=== PATIENT | female | born 1970 | race Two or more races ===

== ENCOUNTER 2017-09-14 12:42 | Outpatient (CLI) | payer MEDICARE, MEDICAID | END 2017-09-14 23:59 | disposition home or self-care (01) | LOC: WOU 12:42 | PROVIDERS: ATTEND Surgery | DX: L98.0 Pyogenic granuloma (principal); S61.011A Laceration without foreign body of right thumb without damage to nail, initial encounter; X58.XXXA Exposure to other specified factors, initial encounter; Y92.89 Other specified places as the place of occurrence of the external cause; M79.644 Pain in right finger(s); F79 Unspecified intellectual disabilities; R73.03 Prediabetes | CPT/HCPCS: 11042; A6402; J3490 ==

== ENCOUNTER 2017-09-18 13:15 | Outpatient (CLI) | payer MEDICARE, MEDICAID | END 2017-09-18 23:59 | disposition home or self-care (01) | LOC: WOU 13:15 | PROVIDERS: ATTEND Surgery | DX: L98.0 Pyogenic granuloma (principal); S61.011A Laceration without foreign body of right thumb without damage to nail, initial encounter; X58.XXXA Exposure to other specified factors, initial encounter; Y92.89 Other specified places as the place of occurrence of the external cause; M79.644 Pain in right finger(s) | CPT/HCPCS: 11042; A6402 ==

== ENCOUNTER 2017-09-25 13:00 | Outpatient (CLI) | payer MEDICARE, MEDICAID ==
[2017-09-25 14:42] LABS: BASOPHILS # (AUTO) 0.1 /CMM (0.0-0.2); BASOPHILS % (AUTO) 0.7 % (0.0-2.0); EOSINOPHILS % (AUTO) 2.1 % (0.0-6.0); HEMATOCRIT 46 % (33-45); HEMOGLOBIN 15.3 g/dL (11.5-14.8); LYMPHOCYTES # (AUTO) 2.1 /CMM (0.8-4.8); MEAN CORPUSCULAR HGB CONC 33 g/dl (31.0-36.0); MEAN CORPUSCULAR VOLUME 91 fL (82-100); MONOCYTES # (AUTO) 0.8 /CMM (0.1-1.30); NEUTROPHILS # (AUTO) 9.6 /CMM (1.8-8.9); NEUTROPHILS % (AUTO) 75.2 % (43.0-81.0); PLATELET COUNT (AUTO) 300 /CMM (150-450); RDW COEFFICIENT OF VARIATION 13.6 (11.5-15.0); RED BLOOD CELL COUNT(AUTO) 5.04 MIL/uL (4.0-5.2); WHITE BLOOD COUNT (AUTO) 12.8 K/uL (4.3-11.0)
[2017-09-25 14:51] LABS: CALCIUM, SERUM 9.8 mg/dL (8.5-10.1); CREATININE 0.8 mg/dL (0.6-1.3); POTASSIUM 4.1 mmol/L (3.5-5.1)
[2017-09-25 14:55] LABS: INR 0.94 (0.87-1.13)
== END 2017-09-25 23:59 | disposition home or self-care (01) ==
LOC: WOU 13:00
PROVIDERS: ATTEND Surgery
DX: L98.0 Pyogenic granuloma (principal); M79.644 Pain in right finger(s); F79 Unspecified intellectual disabilities; R73.03 Prediabetes
CPT/HCPCS: 11042; 36415; 80048-TC; 84703-TC; 85025-TC; 85610-TC; 85730-TC; A6402

== ENCOUNTER → 2017-09-28 | Day surgery (SDC) | payer MEDICARE, MEDICAID ==
[~2017-09-28] MED LIST: BUPIVACAINE 0.25% 75 MG/30 ML VIAL ONE; LIDOCAINE 1%-EPI 1:100,000 20 ML VIAL ONE
== END | disposition home or self-care (01) ==
LOC: DS 10:51
PROVIDERS: ATTEND Surgery
DX: L98.498 Non-pressure chronic ulcer of skin of other sites with other specified severity (principal); L98.0 Pyogenic granuloma; R73.03 Prediabetes; Z98.890 Other specified postprocedural states; Z82.49 Family history of ischemic heart disease and other diseases of the circulatory system
CPT/HCPCS: 11042; A6402 ×2; J0690; J1100; J2405; J2704; J3490 ×3

== ENCOUNTER 2017-10-02 13:45 | Outpatient (CLI) | payer MEDICARE, MEDICAID | END 2017-10-02 23:59 | disposition home or self-care (01) | LOC: WOU 13:45 | PROVIDERS: ATTEND Surgery | DX: L98.0 Pyogenic granuloma (principal); S61.011A Laceration without foreign body of right thumb without damage to nail, initial encounter; X58.XXXA Exposure to other specified factors, initial encounter; Y92.89 Other specified places as the place of occurrence of the external cause; F79 Unspecified intellectual disabilities | CPT/HCPCS: 11042; A6402 ==

== ENCOUNTER 2017-10-05 13:00 | Outpatient (CLI) | payer MEDICARE, MEDICAID | END 2017-10-05 23:59 | disposition home or self-care (01) | LOC: WOU 13:00 | PROVIDERS: ATTEND Surgery | DX: L98.0 Pyogenic granuloma (principal); S61.011A Laceration without foreign body of right thumb without damage to nail, initial encounter; Y33.XXXA Other specified events, undetermined intent, initial encounter; Y92.89 Other specified places as the place of occurrence of the external cause; F79 Unspecified intellectual disabilities | CPT/HCPCS: 11042; A6402 ==

== ENCOUNTER 2017-10-12 13:00 | Outpatient (CLI) | payer MEDICARE, MEDICAID | END 2017-10-12 23:59 | disposition home or self-care (01) | LOC: WOU 13:00 | PROVIDERS: ATTEND Surgery | DX: L98.0 Pyogenic granuloma (principal); S61.011A Laceration without foreign body of right thumb without damage to nail, initial encounter; X58.XXXA Exposure to other specified factors, initial encounter; F79 Unspecified intellectual disabilities | CPT/HCPCS: 11042; A6402 ==

== ENCOUNTER 2017-10-19 13:04 | Outpatient (CLI) | payer MEDICARE, MEDICAID | END 2017-10-19 23:59 | disposition home or self-care (01) | LOC: WOU 13:04 | PROVIDERS: ATTEND Surgery | DX: L98.0 Pyogenic granuloma (principal); S61.011A Laceration without foreign body of right thumb without damage to nail, initial encounter; X78.8XXA Intentional self-harm by other sharp object, initial encounter; Y92.89 Other specified places as the place of occurrence of the external cause; F79 Unspecified intellectual disabilities | CPT/HCPCS: 11042; A6402 ==

== ENCOUNTER 2017-10-26 12:45 | Outpatient (CLI) | payer MEDICARE, MEDICAID | END 2017-10-26 23:59 | disposition home or self-care (01) | LOC: WOU 12:45 | PROVIDERS: ATTEND Surgery | DX: L98.0 Pyogenic granuloma (principal); S61.011D Laceration without foreign body of right thumb without damage to nail, subsequent encounter; Y33.XXXD Other specified events, undetermined intent, subsequent encounter; F79 Unspecified intellectual disabilities | CPT/HCPCS: A6402; G0463 ==

== ENCOUNTER 2017-11-02 12:58 | Outpatient (CLI) | payer MEDICARE, MEDICAID | END 2017-11-02 23:59 | disposition home or self-care (01) | LOC: WOU 12:58 | PROVIDERS: ATTEND Surgery | DX: F79 Unspecified intellectual disabilities (principal) | CPT/HCPCS: A6402; G0463; Z7610 ==

== ENCOUNTER 2017-11-13 13:49 | Outpatient (CLI) | payer MEDICARE, MEDICAID | END 2017-11-13 23:59 | disposition home or self-care (01) | LOC: WOU 13:49 | PROVIDERS: ATTEND Surgery | DX: S61.011D Laceration without foreign body of right thumb without damage to nail, subsequent encounter (principal); X58.XXXD Exposure to other specified factors, subsequent encounter; Z87.2 Personal history of diseases of the skin and subcutaneous tissue; F79 Unspecified intellectual disabilities | CPT/HCPCS: 99213; Z7610; G0463 ==